=== PATIENT | female | born 1975 | race Caucasian/White ===

== ENCOUNTER 2023-04-07 15:18 | Outpatient (RCR) | payer OTHER ==
[~2023-04-07 15:18] MED LIST: MOTRIN 800800 MG/TAB PO; NO HOME MEDICATIONS; NORCO 325 MG-51 TAB PO
== END 2023-04-12 ==
LOC: WSOH
DX: M25.531 Pain in right wrist (principal); Y99.0 Civilian activity done for income or pay
CPT/HCPCS: 24091; A6549

== ENCOUNTER → 2024-01-22 | Outpatient (CLI) | payer BC | LOC: MC.RAD 16:44 | DX: Z12.31 Encounter for screening mammogram for malignant neoplasm of breast (principal) ==